=== PATIENT | male | born 1950 | race Caucasian/White ===

== ENCOUNTER 2016-10-23 16:28 | Observation (INO) | payer OTHER ==
[~2016-10-23] VITALS: Ht 180.3 cm; Wt 108.0 kg
[2016-10-23 16:40] VITALS: BP 119/64; PULSE 75; RESP 14; O2SAT 95
[2016-10-23 17:37] LABS: BASOPHILS % (AUTO) 0.2 % (0-3); MONOCYTES % (AUTO) 6.4 % (4-12); Mean Corpuscular Hemoglobin 27.8 pg (27.0-35.0); Mean Corpuscular Volume 87.4 fL (81-100); NEUTROPHILS % (AUTO) 69.6 % (40-74); Platelet Count 183 bil/L (150-400)
[2016-10-23 18:06] LABS: TROPONIN T < 0.010 ug/L (0.0-0.011)
--- NOTE | 2016-10-23 18:36 | ED.REPORT ---
HPI-General Illness Date of Service Oct 23, 2016 ED Provider: Jerman Camacho DO Patient is 65 year old male with a history of vertigo and diabetes mellitus who presents to the ED via EMS after experiencing two episodes of near-syncope this afternoon. 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 He did not did not like the odor of the fumes and was concerned for carbon monoxide exposure. Patient denies experiencing a headache. As the patient was walking up a walkway to his car, he suddenly developed a staggering stumbling gait, and felt as if he was going to pass out. The patient sat down in his car and become drenched in sweat with left sided chest pain. He reported some associated nausea. However, the patient soon improved and drove home with his . While driving he then experienced the same symptoms again, feeling lightheaded as if he was going pass out. His pulled their car over to the side of the road, calling 911. He denies experiencing a spinning sensation, vomiting, swelling in his leg or pain in his legs. Patient states that he feels improved in the ED. Nursing Notes Stated Complaint: DIZZINESS Chief Complaint: General Complaint Nursing Notes Reviewed: Yes Allergies: Coded Allergies: codeine (Verified Allergy, Unknown, 10/23/16) Uncoded Allergies: Tylonol No 3 with Codeine (Adverse Reaction, Severe, 10/24/16) Palpitation reaction Scheduled Aspirin Chew (Aspirin Chew) 81 Mg Chew 81 MG PO DAILY Clobetasol Propionate/Emoll (Clobetasol Emollient 0.05% Crm) 15 Gm Cream..g. 1 APPL TOP BID Lisinopril (Lisinopril) 10 Mg Tablet 10 MG PO DAILY Lisinopril (Lisinopril) 5 Mg Tablet 2.5 MG PO BID Metformin HCl (Metformin HCl ER) 500 Mg [id number] 500 MG PO BID Omeprazole (Omeprazole) 20 Mg Capsule.dr 20 MG PO DAILY Paroxetine (Paroxetine) 40 Mg Tablet 40 MG PO DAILY Simvastatin (Simvastatin) 20 Mg Tablet 20 MG PO HS Urea (Urea) 30 Gm Cream..g. 20 GM TP BID Scheduled PRN Nitroglycerin SL (Nitrostat) 0.4 Mg Tab.subl 0.4 MG SL Q5MIN PRN PRN For Chest Pain Salsalate (Salsalate) 750 Mg Tablet 750 MG PO TID PRN PRN For Pain General Time Seen by MD: 18:35 Chief Complaint Other (near syncope) Hx Obtained From: Patient Arrived By: Ambulance Sudden in Onset?: Yes Onset Occurred: 1 - 4 hours ago Location: : Abdomen Severity: Current: No pain currently Severity: Maximum: Mild Recent Healthcare: No recent doctor visit, No recent hospitalization Similar Sx Previous: Yes Past Medical History Past Medical History vertigo gallstones anxiety diabetes mellitus Past Surgical History none reported Smoking History Unknown if Ever Smoker Social History Other Social History: Good social support, Local resident Ambulatory Status Independent Review of Systems Full Review of Systems Cardiovascular: Reports: Chest pain GI: Reports: Abdominal pain, Nausea, Denies: Vomiting Musculoskeletal: Denies: Extremity pain, Extremity swelling Skin: Reports Diaphoresis Neurologic: Reports: Lightheaded, Syncope (near), Weakness, Denies: Dizziness, Spinning sensation Complete sys rev & neg: except as marked. Physical Exam Vital Signs Vital Signs Date Time Temp Pulse Resp B/P Pulse Ox O2 Delivery O2 Flow Rate FiO2 10/23/16 19:01 77 16 139/77 99 Room Air 10/23/16 16:40 36.3 75 14 119/64 95 Room Air Initial VS: Reviewed Head / Eyes: Atraumatic, Normocephalic, PERRL ENT: Conjunctiva normal, No scleral icterus Neck: Supple, Full range of motion Respiratory: Breath sounds normal, Clear to auscultation, No respiratory distress Cardiovascular: Regular rate & rhythm, Heart sounds normal Abdomen / GI: Soft, Non-tender, No guarding, No rebound Extremities: Vascular intact, Neuro intact, No swelling, No tenderness Skin: Warm, Dry, No cyanosis Neurologic: Alert, Oriented, Nonfocal Psychiatric: Mood/affect normal, Behavior normal, Normal thought content General/Constitutional: Awake, Alert, No acute distress Interpretation & Diagnostics Lab Results Interpretation Result Diagram: 10/24/16 0400 10/24/16 0400 Test 10/23/16 17:22 10/23/16 19:06 10/23/16 22:32 Prothrombin Time 10.0sec (8.1-12.5) Prothromb Time International Ratio 0.94ratio Activated Partial Thromboplast Time 22.6sec (22.8-33.0) D-Dimer 0.7mg/L (<0.50) Hemoglobin A1c 6.6% (4.8-5.6) Thyroid Stimulating Hormone (TSH) 1.260uIU/mL (0.450-4.500) Hold Hu Top Tube Received (Received) Hold Urine Received (Received) Urine Color Yellow (YELLOW) Urine Appearance Hazy (CLEAR,HAZY) Urine pH 7.0 (5.0-8.0) Urine Specific [place] 1.015 (1.003-1.035) Urine Protein Negativemg/dL (NEG,TRACE) Urine Glucose (UA) Negativemg/dL (NEGATIVE) Urine Ketones Negativemg/dL (NEGATIVE) Urine Occult Blood Negative (NEGATIVE) Urine Nitrite Negative (NEGATIVE) Urine Bilirubin Negative (NEGATIVE) Urine Urobilinogen Normalmg/dL (NORMAL) Urine Leukocyte Esterase Negative (NEGATIVE) Urine RBC 0-2/hpf (0-2) Urine WBC 0-5/hpf (0-5) Urine Epithelial Cells Occasional/hpf (NONE-MOD) Urine Crystals Amorphous urates (NONE Urine Bacteria Few/hpf (NONE-FEW) Urine Hyaline Casts Occasional/lpf (NONE) Urine Granular Casts None seen (NONE SEEN) Urine Waxy Casts None seen (NONE SEEN) Urine Red Blood Cell Casts None seen (NONE SEEN) Urine White Blood Cell Casts None seen (NONE SEEN) Urine Mucus Present (None Seen) Urine Trichomonas None seen (NONE SEEN) Urine Yeast None (NONE SEEN) Urinalysis Comment None Urine Culture Reflexed Not indicated Pulse Oximetry Interpretation Pulse Oximetry: Pulse Ox normal ECG Interpretation ECG Interpretation: Normal Sinus rhtythm, Rate 67 Time: 16:50 Interpreted by: ED physician Normal ECG Interpretation: No acute ischemic changes CT Head Interpretation IMPRESSION: 1. No acute intracranial abnormality. Dictated by: Mark Alvarez M.D. on 10/23/2016 at 19:56 Approved by: Mark Alvarez M.D. on 10/23/2016 at 20:02 Study: Head CT no contrast CT Chest Interpretation IMPRESSION: 1. No evidence of pulmonary embolism. Dictated by: Mark Alvarez M.D. on 10/23/2016 at 21:17 Approved by: Mark Alvarez M.D. on 10/23/2016 at 21:21 Study type: CT pulm angiogram Interpretation / Wet Read by: Interpret - Radiologist Re-Eval/Medical Decision Time of Eval: 19:32 Patient Status: Condition improved Re-Evaluation/Progress Note: Rechecked the patient, who was informed of the results of his work-up thus far. Time of Eval: 22:14 Patient Status: Condition improved Re-Evaluation/Progress Note: Rechecked the patient. He was informed that the CT scan of his chest was negative. No acute problem on work-up. He has been admitted to the hospital for further care, including a stress test. Patient understands and agrees with this plan. All questions were addressed. Consultation : Referral / Consult Name: Can Phillips MD Consulted With: Hospitalist Call Returned at: 22:13 [employer]: Will see patient, Agrees with eval, Agrees with plan, Accepts admit Note: Spoke with Dr. Phillips, hospitalist, who agrees to accept admit. Counseled Regarding: Diagnosis, Lab results, Need for admission Discharge & Departure Primary Impression: Near syncope Additional Impressions: Exertional dyspnea Left sided chest pain Disposition: ADMITTED TO HOSPITAL Discharge Condition All VS Reviewed: Yes Condition: Stable [facility] Geetha Attestation Portions of this note were transcribed by Shanel Brown. I, Dr. Camacho personally performed the history, physical exam and medical decision-making; I reviewed and confirmed the accuracy of the information in the transcribed note. Signed by: Geetha Zacarias, 10/23/2016 0741 copies to: [facility] Jerman Camacho DO Oct 23, 2016 18:35 Shanel Brown Oct 23, 2016 18:38
[2016-10-23 19:01] VITALS: BP 139/77; PULSE 77; RESP 16; O2SAT 99
[2016-10-23 19:52] LABS: Magnesium 1.9 mg/dL (1.6-2.6)
--- NOTE | 2016-10-23 20:08 | DRSVH ---
PROCEDURE: CT BRAIN WITHOUT CONTRAST ([id number]) INDICATIONS: ataxia TECHNIQUE: Noncontrast 4.5 mm thick angled axial sections acquired from the foramen magnum to the vertex, with c oronal reformats. COMPARISON: None. FINDINGS: Image quality: Excellent. CSF spaces: Basal cisterns are patent. No extra-axial fluid collections. Ventricles are normal in size and shape. Brain: No intracranial hemorrhage, mass, or mass effect. Mckeon-white matter interface is preserved. Skull and face: Calvarium and visualized facial bones are intact, without suspicious lesions. Sinuses: Visualized sinuses and mastoids are clear. IMPRESSION: 1. No acute intracranial abnormality. Dictated by: Mark Alvarez M.D. on 10/23/2016 at 19:56 Approved by: Mark Alvarez M.D. on 10/23/2016 at 20:02
--- NOTE | 2016-10-23 21:27 | DRSVH ---
PROCEDURE: CT ANGIO CHEST PULMONARY EMBOLISM ([id number]) INDICATIONS: near syncope, diaphoresis, left chest pain TECHNIQUE: After the administration of intravenous contrast, 2 mm thick sections acquired from the pulmonary api anson to the posterior costophrenic angles. 3-dimensional maximum intensity projection (MIP) coronal a nd sagittal reformats were then acquired through the thorax. For radiation dose reduction, the follo wing was used: automated exposure control, adjustment of mA and/or kV according to patient size. COMPARISON: None. FINDINGS: Image quality: There is mild motion artifact. Pulmonary arteries: Pulmonary arteries are normal in size, and demonstrate no intraluminal filling d efects to suggest central pulmonary embolism. Lungs and pleura: Mild dependent atelectasis is demonstrated bilaterally. No acute consolidation. N o pleural effusions or pneumothorax. Central and peripheral airways are patent. Mediastinum: Heart size is normal, without pericardial effusion. No mediastinal or hilar adenopathy . Thoracic aorta is normal in caliber and enhancement. Esophagus is normal in caliber, without hiat al hernia. Bones and chest wall: No suspicious bony lesions. Ribs and thoracic spine appear intact throughout. Thyroid gland is partially visualized. No axillary or supraclavicular adenopathy. Abdomen: Visualized upper abdomen demonstrates a cyst partially visualized in the right kidney. IMPRESSION: 1. No evidence of pulmonary embolism. Dictated by: Mark Alvarez M.D. on 10/23/2016 at 21:17 Approved by: Mark Alvarez M.D. on 10/23/2016 at 21:21
[2016-10-23] MEDS ORDERED: Senna-Docusate 8.6-50 mg Tablet PO PRN (22:25)
[2016-10-23] MEDS ORDERED: Alum-Mag Hydrox-Simeth 30 mL Suspension PO PRN (22:25)
[2016-10-23] MEDS ORDERED: Polyethylene Glycol (PEG) 17 Gm Powder PO PRN (22:25)
[2016-10-23] MEDS ORDERED: Ondansetron 2 mg/mL 2 mL Inj IVPUSH PRN (22:25)
[2016-10-23 22:39] LABS: APPEARANCE,URINE HAZY (CLEAR,HAZY); COLOR,URINE YELLOW (YELLOW); OCCULT BLOOD,URINE NEGATIVE (NEGATIVE); UROBILINOGEN,URINE NORMAL (NORMAL)
[2016-10-23 22:47] LABS: INR 0.94 ratio
[2016-10-23 22:56] VITALS: BP 137/56; PULSE 78; RESP 17; O2SAT 95
--- NOTE | 2016-10-23 23:22 | PCM.HPMED ---
Subjective Date of Service Oct 23, 2016 Primary Provider: Admitting Physician: Can Phillips MD [facility] Attending Physician: Can Phillips MD Chief Complaint: Dizziness History of Present Illness: Patient is a 65 y.o. M with past medical history of vertigo, DM type II on metformin, anxiety, GERD. 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 Patient stated that while working the the boat he was exposed to diesel fumes and became dizzy, nauseous, and "like I was going to pass out." Patient stated this lasted for a few hours while he remained at the boat to help his brother. After patient went to his care to leave he broke out into a full body sweat, nausea, dizziness intensified, patient stated that he had left sided pain and was unsure if this was chest pain or pain related to a kidney stone. Patient noted that he has pass multiple kidney stones previously and required surgery for one. Patient stated that the pain, nausea, dizziness resolved and he began to drive home. While driving patient stated the symptoms returned, he felt dizzy , sweaty, and his heart was racing. His pulled over and his called EMS. Patient stated that he has had similar episodes of near syncope due to pain. He previously had a cardiac workup at the [place] and was told he had a large heart but no signs of heart damage. Currently patient noted he still has residual left flank pain down to his groin. He denies current chest pain, chest pressure, diaphoresis, fever, chills, dizziness, dysuria, shortness of breath, swelling of hands or legs, pain in legs. Review of Systems: Comprehensive review of systems conducted and was negative except for the pertinent positives listed above. Allergies Coded Allergies: codeine (Verified Allergy, Unknown, 10/23/16) Uncoded Allergies: Tylonol No 3 with Codeine (Adverse Reaction, Severe, 10/24/16) Palpitation reaction Home Medications Metformin Prilosec reports taking blood pressure medication, cholesterol medication, medication for anxiety but does not no the names nor dose PMH Colon polyps, last scope 1 year ago Kidney stones Anxiety DM type II HTN hyperlipidemia GERD gallstones Surgical History Kidney stone removal Social History Hx Alcohol Use: No Hx Substance Use: No Hx Tobacco Use: Yes Smoking Status: Former Smoker (50 pack year history, quit 26 years ago) Exam Vital Signs Vital Sign - Last Date Time Temp Pulse Resp B/P Pulse Ox O2 Delivery O2 Flow Rate FiO2 10/23/16 22:56 78 17 137/56 95 Room Air 10/23/16 16:40 36.3 Exam General: Alert, Oriented X3, Cooperative, No Acute Distress, Obese Head: Normocephalic, atraumatic. External ears normal. Eyes: PERRLA, EOMI. Anicteric sclerae. Mouth: Mouth Normal, Mucous Membranes Moist/[place] Neck: Neck supple with full range of motion. no JVD, no carotid bruit Chest & Lungs: Wide A-P diameter, Clear to auscultation bilaterally with no crackles, wheezes, or rhonchi. Cardiovascular: Regular Rate/Rhythm, Normal S1, Normal S2, No Murmurs/Rubs/ Gallops, heart tones difficult to appreciate due to body habitus Abdomen: Tender LLQ, Non-distended, No masses, Normoactive bowel tones, Soft, no abdominal bruit Musculoskeletal: Normal Range of Motion Extremities: No cyanosis/clubbing/edema bilaterally Neurological: Grossly Neurologically Intact, Cranial Nerves 2-12 Intact, Normal Speech, Strength Normal 4/4 ext, Sensation Intact, Lab and Diagnostics Result Diagram: 10/23/16 1722 10/23/16 1722 X-Rays, CTs and MRIs CT Head IMPRESSION: 1. No acute intracranial abnormality. Dictated by: Mark Alvarez M.D. on 10/23/2016 at 19:56 Approved by: Mark Alvarez M.D. on 10/23/2016 at 20:02 CT Chest IMPRESSION: 1. No evidence of pulmonary embolism. Dictated by: Mark Alvarez M.D. on 10/23/2016 at 21:17 Approved by: Mark Alvarez M.D. on 10/23/2016 at 21:21 12-lead ECG ECG Interpretation: Normal Sinus rhtythm, Rate 67 Time: 16:50 Interpreted by: ED physician Normal ECG Interpretation: No acute ischemic changes Agree with interpretation Assessment & Plan Patient is a 65 y.o. M with past medical history of vertigo, DM type II on metformin, anxiety, GERD. 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 Patient has several cardiac risk factors, MAVERICK score 2. Patient admitted to hospital for work up of chest pain. 1. Presyncopal episode, acute - Several cardiac risk factors, MAVERICK score 2, symptoms tachycardia diaphoresis are worrisome for unstable angina, vs vasovagal syncope - ASA 324 mg - Atorvastatin 40 mg - Lisinopril 2.5 mg BID - Lipid profile ordered - Troponin trend Q6, initial troponin negative - Continue Tele - ECHO in AM - Stress test in AM - CXR ordered - Repeat CBC, BMP in AM - EKG PRN chest pain - Nitroglycerin SL PRN chest pain 2. Left sided Flank pain, acute - History of kidney stones - UA ordered - Percocet 5-325 mg Q6 PO for pain, patient noted no reaction to oxycodone - IVF NS @ 100 mls/hr Chronic Conditions DM Type II - Hold metformin - Med correctional scale ordered - A1C ordered HTN - unknown home medication - Start Lisinopril as above GERD presumed stable - continue to monitor CODE STATUS DVT prophylaxis: SQ heparin Patient is admitted under observation status with expected length of stay less than 2 midnights due to severity of presenting symptoms, risk of adverse event, and complexity of treatment plan. Pain Evaluation: Adequate Pain Control VTE Prophylaxis: Sub-Q Heparin (Unfractionated) Attending Statement The patient was seen and examined together with Dr. Becerra on 10/23 and I agree with the history, exam and plan as outlined in the note above. EMELY BECERRA DO Oct 23, 2016 23:22 Can Phillips MD Oct 24, 2016 00:44
[2016-10-23 23:31] VITALS: PULSE 57
[2016-10-23] MEDS ORDERED: Glucose 40% Oral Gel 15 Gm Tube PO PRN (23:40)
--- NOTE | 2016-10-23 23:40 | NUR ---
Admission Note Pt admitted to [facility] from ER at 2325, alert and orientedx3, [place] [employer] [employer] [place], denies chest pain or any pain/SOB/N/V/Fever/chills/dizziness/vertigo. BP149/87 HR 59, SPO2 97% on RA. afebrile. Lungs sounds clear, HR regular, no murmur. Tele applied SB57 per biological science technician fish. Abdomen soft, non tender,BT active, no edema at LEs. Plavix ordered, then DCed before the med given,verified with MD "do not given Plavix" per Dr. Atkinson. NS 80 ml/hr administered. Pt informed NPO after MN, no caffeine (last drink caffeine at morning 10/23/2016) for Stress test tomorrow. Call light oriented pt pt. Care ongoing.
[2016-10-23] MEDS ORDERED: oxyCODONE-Acetamin 5-325 mg Tablet PO PRN (23:45)
[2016-10-23] MEDS: 0.9% Sodium Chloride 1,000 ML IV SCH (23:53)
[2016-10-24] VITALS: BP 149/87; PULSE 59; RESP 18; O2SAT 97
[2016-10-24] MEDS: Sodium Chloride LOK Flush 10 mL Syringe IVFLUSH SCH ×3 (01:37→15:30)
[2016-10-24] MEDS: Heparin 5,000 Unit/mL Inj SUBQ SCH ×3 (01:37→15:30)
--- NOTE | 2016-10-24 02:14 | NUR ---
Home Meds List not done Home Meds List not done due to no information available from pt, [facility] [place] [facility] per pt, will give report to requests med records from facility when the clinic opens.
[2016-10-24 04:25] LABS: TROPONIN T 0.01 ug/L (0.0-0.011)
[2016-10-24 05:07] VITALS: BP 132/62; PULSE 68; RESP 18; O2SAT 98
[2016-10-24] MEDS: Insulin LISPRO 300 Unit/3 mL Inj SUBQ SCH ×3 (08:00→15:34)
--- NOTE | 2016-10-24 08:15 | DRSVH ---
PROCEDURE: X-RAY CHEST ONE VIEW, PORTABLE ([id number]) INDICATIONS: Chest pain TECHNIQUE: One view of the chest was acquired. COMPARISON: None. FINDINGS: Surgical changes and devices: None. Lungs and pleura: No pleural effusions or pneumothorax. Lungs are clear. Mediastinum: Mediastinal contours appear normal. Heart size is normal. Bones and chest wall: No suspicious bony lesions. Overlying soft tissues appear unremarkable. IMPRESSION: No acute cardiopulmonary disease. Dictated by: Augustus Spann M.D. on 10/24/2016 at 8:13 Approved by: Augustus Spann M.D. on 10/24/2016 at 8:13
[2016-10-24] MEDS ORDERED: AMLO5TAB2 PO (08:49)
[2016-10-24] MEDS ORDERED: CLOB15CR3 TOP (08:52)
[2016-10-24] MEDS ORDERED: LISI10TA PO (08:53)
[2016-10-24] MEDS ORDERED: METF-777 PO (08:54)
[2016-10-24] MEDS ORDERED: OMEP20CA11 PO (08:54)
[2016-10-24] MEDS ORDERED: PARO40TA3 PO (08:56)
[2016-10-24] MEDS ORDERED: SIMV20TA4 PO (08:57)
[2016-10-24] MEDS ORDERED: SALS750T16 PO (08:57)
[2016-10-24] MEDS ORDERED: UREA198C TP ×2 (09:02→09:10)
[2016-10-24 09:34] LABS: BASOPHILS % (AUTO) 0.2 % (0-3); EOSINOPHILS % (AUTO) 0.8 % (0-5); MONOCYTES % (AUTO) 7.9 % (4-12); Mean Corpuscular Hemoglobin 28.4 pg (27.0-35.0); Mean Corpuscular Volume 87.9 fL (81-100); NEUTROPHILS % (AUTO) 54.4 % (40-74); Platelet Count 198 bil/L (150-400)
[2016-10-24 09:44] LABS: Magnesium 2.1 mg/dL (1.6-2.6)
[2016-10-24 10:02] VITALS: BP 144/76; PULSE 65; RESP 20; O2SAT 97
[2016-10-24 11:10] VITALS: PULSE 60
--- NOTE | 2016-10-24 12:39 | DRSVH ---
[facility] [address] [place] [address] Echocardiogram Report Name: AVI VAZQUEZ Study Date: 10/24/2016 Height: 71 in Hospital Exam Location: [facility] Weight: 238 lb Gender: Male BSA: 2.3 m2 : 1950 Age: 65 yrs BP: 132/62 mmHg Reason For Study: Chest pain Ordering Physician: Performed By: [facility] Interpretation Summary Mild concentric left ventricular hypertrophy with ejection fraction 60-65%. Grade I diastolic dysfunction. Borderline left atrial enlargement. Mild mitral regurgitation. Procedure: A two-dimensional transthoracic echocardiogram with color flow and Doppler was performed. The study quality was technically adequate. There is no prior echocardiogram noted for this patient. The patient was in normal sinus rhythm during the exam. Left Ventricle: There is mild concentric left ventricular hypertrophy. The ejection fraction is estimated to be 60-65%. There are no focal wall motion abnormalities. Assessment of diastolic parameters indicates a relaxation abnormality of the left ventricle, consistent with normal filling pressures. Right Ventricle: The right ventricle is normal in size, thickness and function. Atria: Borderline left atrial enlargement. Right atrial size is normal. The interatrial septum is intact with no evidence for an atrial septal defect. Mitral Valve: The mitral valve is grossly normal. There is mild mitral regurgitation. Aortic Valve: The aortic valve opens well. No aortic regurgitation is present. Tricuspid Valve: The tricuspid valve is normal in structure and function. There is trace tricuspid regurgitation. The right ventricular systolic pressure is estimated at 27 mmHg assuming a right atrial pressure of 3 mm Hg. Pulmonic Valve: The pulmonic valve is normal in structure and function. There is no pulmonic valvular regurgitation. Great Vessels: The aortic root is normal size. The ascending aorta is at the upper limits of normal in size. The IVC is of normal diameter and collapses greater than 50% with a sniff. This suggests a low right atrial pressure of 3 mm Hg. Pericardium/ Pleura There is no pericardial effusion. There is no pleural effusion. MMode/2D Measurements & Calculations LVIDd: 5.6 cm LA dimension: 4.0 cm RA long axis AoV Opening LVIDs: 3.9 cm FS: 30.7 % LA A2 area: 22.4 cm RA area Ao root diam IVSd: 1.1 cm LA A4 area: 23.0 cm LVPWd: 1.1 cm LA length (vol) : 18.1 cm Aortic Jxn: 2.4 cm RA vol asc Aorta Diam LA vol: 74.4 ml : 49.8 ml LA vol index RA Ao Arch Diam (Prox : 21.9 mm/ Trans): 2.9 cm RVDd major IVC diam: 1.8 cm : 5.3 cm LV reynoso. diameter/BSA LV sys. diameter/BSA RVD1 (basal) RVD2 (mid): 3.7 cm (cm/m^2): 2.5 (cm/m^2): 1.7 Doppler Measurements & Calculations Ao V2 max MV E max chandrakant MV E/A: 0.76 TR max chandrakant : 155.2 cm/sec : 60.0 cm/sec Med Peak E' Chandrakant : 244.5 cm/sec Ao max PG MV A max chandrakant TR max PG : 9.6 mmHg : 79.0 cm/sec E/E' med: 8.7 : 23.9 mmHg Ao mean PG MV P1/2t: 96.2 msec Lat Peak E' Chandrakant PA V2 max : 4.1 mmHg : 63.0 cm/sec E/E' lat: 5.3 PA mean PG E/e' average: 7.0 : 0.77 mmHg MV A dur: 0.12 sec MV dec time MV P1/2t max chandrakant Ao V2 mean PA V2 mean : 0.32 sec : 91.9 cm/sec : 40.5 cm/sec MVA(P1/2t): 2.3 cm2 Ao V2 VTI: 30.1 cm PA pr(Accel) : 14.1 mmHg Electronically signed by: Patrice Fernández on Reading Physician:10/24/2016 12:38 PM
--- NOTE | 2016-10-24 13:20 | NUR ---
Off unit-CVL Pt off unit for stress test at 1318. Pt denied pain. cardiac cath lab radiology technologist notified. IV-SL. Addendum: 10/24/16 at 1517 by DEDRA MCKENZIE RN Pt returned at 1510. Tele notified. Pt denies pain. Will continue with frequent monitoring.
--- NOTE | 2016-10-24 14:45 | NUR ---
Social Work: Screening Data: Pt is a 65 y/o male admitted for CP with near syncopy / diaphroresis. Pt's PCP is [facility]. Pt's insurance is [facility]. UR specialist notified of VA status. No d/c planning needs anticipated at this time. MARINE EQUIPMENT ENGINEER will continue to follow if needs arise. Assessment: Pt who is independent at baseline. Plan: Pt will d/c home via POV when medically stable. No d/c planning needs anticipated at this time. MARINE EQUIPMENT ENGINEER will continue to follow if needs arise. EAN Tapia
[2016-10-24 15:14] VITALS: BP 129/76; PULSE 88; RESP 14; O2SAT 94
[2016-10-24] MEDS: 0.9% Sodium Chloride 1,000 ML IV SCH (15:29)
--- NOTE | 2016-10-24 16:47 | DRSVH ---
PROCEDURE: 1 DAY TREADMILL STRESS TEST Rest and exercise myocardial perfusion SPECT with gated imaging and ejection fraction RADIOPHARMACEUTICAL: 11.3 mCi Tc-99m tetrafosmin IV at rest and 31.7 mCi Tc-99m tetrafosmin IV at pea k exercise. [id number] was performed. INDICATIONS: 65 year-old man with syncope. Patient has diabetes, hypertension, hyperlipidemia. TECHNIQUE: Radiopharmaceutical was injected at peak stress test, and also at rest. SPECT images wer e obtained. SPECT myocardial perfusion images were displayed in short axis, horizontal long axis, an d vertical long axis views. Gated images were reviewed using [employer] software. COMPARISON: None. CARDIAC STRESS: A standard [place] treadmill exercise tolerance test was performed by the patient under the supervision of an attending staff. The patient exercised for 7 minutes and 41 seconds; functional aerobic impai rment (SORAIDA) is -1 %. Hemodynamic data: There is normal blood pressure and heart rate response to exercise stress. Patien t achieved 102% of maximum predicted heart rate at peak exercise. Symptoms: Patient denied chest pain during exercise. EKG: No diagnostic EKG changes of ischemia; no ectopy. FINDINGS: Raw data: There is good myocardial labeling by radiotracer. No significant motion artifacts. Left ventricle function: Gated images demonstrate normal left ventricle wall thickening. No segment al wall motion abnormality. No transient ischemic dilation. The left ventricle resting end-diastoli c volume is normal. Left ventricle stress ejection fraction is 65%; normal values are above 45%. Myocardial perfusion: There is a small, mild, fixed defect in the apex, which is more pronounced on resting images and exercise stress images, compatible with apical thinning. There is otherwise normal distribution of activity in the left and right ventricular myocardium. No reversible perfusion defe cts to suggest myocardial ischemia. IMPRESSION: 1. Normal myocardial perfusion images. 2. Normal left ventricular volume and systolic function. 3. Average exercise capacity. No chest pain or diagnostic EKG changes for ischemia. PQRS ATTESTATIONS: Measure 322 - Is this imaging test primarily performed on a low-risk surgery patient for preoperative evaluation within 30 days preceding their low-risk non-cardiac surgery? Low-risk surgery is defined as cardiac or myocardial infarction less than 1%, including (but not limited to) endoscopic pr ocedures, superficial procedures, cataract surgery, and excisional breast surgery: Answer: No Measure 323 - Is this imaging test performed primarily for the monitoring of an asymptomatic patient who had percutaneous coronary intervention on the visit date or within 2 years of the visit date? An swer: No Measure 324 - Is this imaging test performed primarily for the initial detection and risk assessment on an asymptomatic, low coronary heart disease patient? Low CHD risk definition = clinicians should consider the maximum number of available patient factors used to estimate risk based on [place] (A TP III criteria), typically age, gender, diabetes, smoking status, and use of blood pressure medicati on, and integrate age appropriate estimates for missing elements, such as LDL or standard blood press ure. Answer: No Dictated by: Augustus Spann M.D. on 10/24/2016 at 16:40 Approved by: Augustus Spann M.D. on 10/24/2016 at 16:46
--- NOTE | 2016-10-24 17:02 | PCM.DIMED ---
Discharge Instructions Date of Service Oct 24, 2016 Dates of Hospitalization Oct 23, 2016 at 22:46 Discharge Diagnosis Discharge Diagnosis Near Syncope Diet Heart Healthy Activity No restrictions (The patient may resume usual activities gradually as tolerated. ) Call your provider Fever or Chills, Shortness of breath, Bleeding, Chest pain, Vomitting, Excessive diarrhea, Weakness (unilateral), Other Patient Instructions [facility] Provider[facility] Follow-up with PCP in: 1 week Bnoi Moctezuma MD Oct 24, 2016 17:02
[2016-10-24] MEDS ORDERED: NITR0.4T SL (17:06)
[2016-10-24] MEDS ORDERED: ASPI81TA3 PO (17:06)
[2016-10-24] MEDS ORDERED: LISI-571 PO (17:06)
--- NOTE | 2016-10-24 17:42 | NUR ---
Discharge Pt d/c home with at 1735. IV x2 d/c. Pt denied pain. VSS. All personal belongings left with pt. Discharge teaching provided, all questions answered.
--- NOTE | 2016-10-24 23:13 | PCM.DC.MED ---
Discharge Summary Date of Service Oct 24, 2016 Dates of Hospitalization Date of Hospital Admission Oct 23, 2016 at 22:46 Date of Discharge: Oct 24, 2016 Providers: Admitting Physician: Can Phillips MD [facility] Attending Physician: Can Phillips MD Diagnosis at Time of Discharge Diagnosis at Time of Discharge Near Syncope Procedures XRay, CTs & MRIs CT Head IMPRESSION: 1. No acute intracranial abnormality. Dictated by: Mark Alvarez M.D. on 10/23/2016 at 19:56 Approved by: Mark Alvarez M.D. on 10/23/2016 at 20:02 CT Chest IMPRESSION: 1. No evidence of pulmonary embolism. Dictated by: Mark Alvarez M.D. on 10/23/2016 at 21:17 Approved by: Mark Alvarez M.D. on 10/23/2016 at 21:21 ECG 12 Lead ECG Interpretation: Normal Sinus rhtythm, Rate 67 Time: 16:50 Interpreted by: ED physician Normal ECG Interpretation: No acute ischemic changes Agree with interpretation Brief History Patient is a 65 y.o. M with past medical history of vertigo, DM type II on metformin, anxiety, GERD. 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 Patient stated that while working the the boat he was exposed to diesel fumes and became dizzy, nauseous, and "like I was going to pass out." Patient stated this lasted for a few hours while he remained at the boat to help his brother. After patient went to his care to leave he broke out into a full body sweat, nausea, dizziness intensified, patient stated that he had left sided pain and was unsure if this was chest pain or pain related to a kidney stone. Patient noted that he has pass multiple kidney stones previously and required surgery for one. Patient stated that the pain, nausea, dizziness resolved and he began to drive home. While driving patient stated the symptoms returned, he felt dizzy , sweaty, and his heart was racing. His pulled over and his called EMS. Patient stated that he has had similar episodes of near syncope due to pain. He previously had a cardiac workup [facility] and was told he had a large heart but no signs of heart damage. Currently patient noted he still has residual left flank pain down to his groin. He denies current chest pain, chest pressure, diaphoresis, fever, chills, dizziness, dysuria, shortness of breath, swelling of hands or legs, pain in legs. Patient was brought in under observation to the hospitalist service under observation for further evaluation and treatment Hospital Course Patient is a 65 y.o. M with past medical history of vertigo, DM type II on metformin, anxiety, GERD. 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 Patient has several cardiac risk factors, MAVERICK score 2. Patient admitted to hospital for work up of chest pain. 1. Presyncopal episode, acute - Several cardiac risk factors, MAVERICK score 2, symptoms tachycardia diaphoresis are worrisome for unstable angina, vs vasovagal syncope - ASA 324 mg - Atorvastatin 40 mg - Lisinopril 2.5 mg BID - Lipid profile ordered - Troponin trend Q6 is negative - Continue Tele - ECHO in AM - Stress test was negative - CXR is unremarkable - Repeat CBC, BMP in AM - EKG PRN chest pain - Nitroglycerin SL PRN chest pain patient has had no chest pain since admission to the emergency room and has been completely asymptomatic. 2. Left sided Flank pain, subacute patient states he has been passing a kidney stone for some time now. And is about to pass it. He states that he is passed over 20 of these stones and is fully comfortable with passing this one. - History of kidney stones - UA ordered - Percocet 5-325 mg Q6 PO for pain, patient noted no reaction to oxycodone - IVF NS @ 100 mls/hr Chronic Conditions DM Type II - Hold metformin - Med correctional scale ordered - A1C ordered HTN - unknown home medication - Start Lisinopril as above GERD presumed stable - continue to monitor CODE STATUS DVT prophylaxis: SQ heparin Disposition: Patient has remained completely asymptomatic since admission with no chest pain no diaphoresis no nausea. It appears that he may have had a reaction to diesel fumes while after his brother started up his boat which the patient was in. Exam Vital Signs (Last) Date Time Temp Pulse Resp B/P Pulse Ox O2 Delivery O2 Flow Rate FiO2 10/24/16 15:14 37.2 88 14 129/76 94 Room Air Exam General: Patient is in no apparent distress HEENT: Head is atraumatic and normocephalic. Eyes: Pupils are equally round and reactive to light and accommodation. Extraocular muscles are intact. Sclera are white, anicteric. Subconjunctival mucosa is pink. Ears and nose are unremarkable. Oropharynx: There is no mucosal lesions, there is no thrush, there is no pharyngitis. Neck: Is supple, there are no nodes, or masses or tenderness. Chest: Is clear to auscultation and percussion. There are no rales, rhonchi, wheezes or rubs. Heart: Rate, rhythm is regular. There is no murmur, rub or gallop. Abdomen: Good bowel sounds are present. Abdomen is soft, nontender, no organomegaly or masses were appreciated. Extremities: Are symmetrical and well perfused. There is no edema, there is no cellulitis, no rash. Neurologic: There are no focal neurological deficits. Cranial nerves II through XII are intact. There are no sensory or motor deficits. Psychiatric: Patients mood is calm and shows no sign of agitation. Genital: Deferred Rectal: Deferred Test 10/23/16 17:22 10/23/16 19:06 10/23/16 22:32 10/24/16 04:00 Prothrombin Time 10.0sec (8.1-12.5) Prothromb Time International Ratio 0.94ratio Activated Partial Thromboplast Time 22.6sec (22.8-33.0) D-Dimer 0.7mg/L (<0.50) Hemoglobin A1c 6.6% (4.8-5.6) Thyroid Stimulating Hormone (TSH) 1.260uIU/mL (0.450-4.500) Hold Hu Top Tube Received (Received) Hold Urine Received (Received) Urine Color Yellow (YELLOW) Urine Appearance Hazy (CLEAR,HAZY) Urine pH 7.0 (5.0-8.0) Urine Specific [place] 1.015 (1.003-1.035) Urine Protein Negativemg/dL (NEG,TRACE) Urine Glucose (UA) Negativemg/dL (NEGATIVE) Urine Ketones Negativemg/dL (NEGATIVE) Urine Occult Blood Negative (NEGATIVE) Urine Nitrite Negative (NEGATIVE) Urine Bilirubin Negative (NEGATIVE) Urine Urobilinogen Normalmg/dL (NORMAL) Urine Leukocyte Esterase Negative (NEGATIVE) Urine RBC 0-2/hpf (0-2) Urine WBC 0-5/hpf (0-5) Urine Epithelial Cells Occasional/hpf (NONE-MOD) Urine Crystals Amorphous urates (NONE Urine Bacteria Few/hpf (NONE-FEW) Urine Hyaline Casts Occasional/lpf (NONE) Urine Granular Casts None seen (NONE SEEN) Urine Waxy Casts None seen (NONE SEEN) Urine Red Blood Cell Casts None seen (NONE SEEN) Urine White Blood Cell Casts None seen (NONE SEEN) Urine Mucus Present (None Seen) Urine Trichomonas None seen (NONE SEEN) Urine Yeast None (NONE SEEN) Urinalysis Comment None Urine Culture Reflexed Not indicated White Blood Count 6.2th/mm3 (3.8-10.1) Red Blood Count 4.64mil/mm3 (4.40-5.80) Hemoglobin 13.2g/dL (13.8-17.2) Hematocrit 40.8% (41.0-50.0) Mean Corpuscular Volume 87.9fL (81-100) Mean Corpuscular Hemoglobin 28.4pg (27.0-35.0) Mean Corpuscular Hemoglobin Concent 32.4% (32.0-37.0) Red Cell Distribution Width 13.6% (12.3-15.4) Platelet Count 198bil/L (150-400) Neutrophils (%) (Auto) 54.4% (40-74) Lymphocytes (%) (Auto) 36.5% (14-46) Monocytes (%) (Auto) 7.9% (4-12) Eosinophils (%) (Auto) 0.8% (0-5) Basophils (%) (Auto) 0.2% (0-3) Sodium Level 140mEq/L (134-144) Potassium Level 4.5mEq/L (3.5-5.2) Chloride Level 100mEq/L (97-108) Carbon Dioxide Level 24mmol/L (18-29) Blood Urea Nitrogen 18mg/dL (8-27) Creatinine 0.92mg/dL (0.76-1.27) Estimat Glomerular Filtration Rate 88mL/min (>59) Glucose Level 111mg/dL (60-99) Calcium Level 9.2mg/dL (8.5-10.1) Magnesium Level 2.1mg/dL (1.6-2.6) Total Bilirubin 0.3mg/dL (0.0-1.2) Aspartate Amino Transf (AST/SGOT) 26U/L (0-50) Alanine Aminotransferase (ALT/SGPT) 17U/L (0-44) Alkaline Phosphatase 73U/L (25-160) Total Protein 6.5g/dL (6.4-8.4) Albumin 3.8g/dL (3.4-5.0) Triglycerides Level 171mg/dL (0-149) Cholesterol Level 172mg/dL (100-199) LDL Cholesterol, Calculated 96.800mg/dL (0-99) VLDL Cholesterol 34.200mg/dL HDL Cholesterol 41mg/dL (>39) Cholesterol/HDL Ratio 4.20 (0.0-4.4) Test 10/24/16 10:32 Troponin T < 0.010ug/L (0.0-0.011) Discharge Medications Discharge Medications Aspirin Chew (Aspirin Chew) 81 Mg Chew 81 MG PO DAILY Prescribed by: MAI MOCTEZUMA MD Clobetasol Propionate/Emoll (Clobetasol Emollient 0.05% Crm) 15 Gm Cream..g. 1 APPL TOP BID (Reported) Lisinopril (Lisinopril) 10 Mg Tablet 10 MG PO DAILY (Reported) Lisinopril (Lisinopril) 5 Mg Tablet 2.5 MG PO BID Prescribed by: MAI MOCTEZUMA MD Metformin HCl (Metformin HCl ER) 500 Mg [id number] 500 MG PO BID (Reported) Omeprazole (Omeprazole) 20 Mg Capsule.dr 20 MG PO DAILY (Reported) Paroxetine (Paroxetine) 40 Mg Tablet 40 MG PO DAILY (Reported) Simvastatin (Simvastatin) 20 Mg Tablet 20 MG PO HS (Reported) Urea (Urea) 30 Gm Cream..g. 20 GM TP BID (Reported) As needed Nitroglycerin SL (Nitrostat) 0.4 Mg Tab.subl 0.4 MG SL Q5MIN PRN PRN For Chest Pain Prescribed by: MAI MOCTEZUMA MD Salsalate (Salsalate) 750 Mg Tablet 750 MG PO TID PRN PRN For Pain (Reported) Followup Plan Disposition: The patient is being discharged home Discharge Diet: Heart Healthy Discharge Activity: No restrictions (The patient may resume usual activities gradually as tolerated.) [facility] Provider[facility] Follow-up with PCP in: 1 week Time spent Time spent on discharging this patient was greater than 35 minutes, over half of which was involved in counseling and coordination of care. Boni Moctezuma MD Oct 24, 2016 23:13
== END 2016-10-24 17:36 | disposition home or self-care (01) ==
LOC: SED 16:28 → EDBD 16:28 → MPC 22:46
PROVIDERS: ADMIT Hospitalist; ATTEND Hospitalist
DX: R55 Syncope and collapse (principal); R10.9 Unspecified abdominal pain; I10 Essential (primary) hypertension; E78.5 Hyperlipidemia, unspecified; E11.9 Type 2 diabetes mellitus without complications; R07.9 Chest pain, unspecified; K21.9 Gastro-esophageal reflux disease without esophagitis; R06.09 Other forms of dyspnea; F41.9 Anxiety disorder, unspecified; Z86.010 Personal history of colon polyps; Z87.442 Personal history of urinary calculi; Z79.82 Long term (current) use of aspirin; Z88.5 Allergy status to narcotic agent; Z79.84 Long term (current) use of oral hypoglycemic drugs; Z87.891 Personal history of nicotine dependence
CPT/HCPCS: 36415; 70450; 71010; 71275; 78452; 80053; 80061; 81000; 83036; 83735; 84443; 84484; 85025; 85379; 85610; 85730; 93005; 93017; 99285; A9502; C8929; G0378; J1644; J1815; J7030; Q9967